=== PATIENT | female | born 1955 | race Caucasian/White ===

== ENCOUNTER 2024-01-25 12:03 | Inpatient (IN) | payer MEDICARE, BC, SELFPAY ==
[2024-01-24 07:42] VITALS: BP 122/104
--- NOTE | 2024-01-24 07:56 | ED.GENMED ---
History of Present Illness
General
Chief Complaint: Fall
Time Seen by Provider: 01/24/24 07:48
History of Present Illness
History of Present Illness:
68-year-old female with history of hypertension presents to the emergency department for evaluation of left shoulder pain and general weakness after a fall last night. She admits to slipping and falling last night around midnight, landing on her
left side. She was unable to get herself up and opted to stay on the floor. Her family did send out a welfare check in the early hours of the morning however the patient refused to be helped to her feet. Patient called EMS this morning given that
she had severe pain in the shoulder. She does report drinking nearly a full bottle of vodka last night due to family stress. She denies drinking on a daily basis. Denies SI or HI. No back pain, hip pain, or pelvic pain. Denies any headaches or
vision changes. Does not take blood thinners
Past History
Past History
ED Past Medical History: HTN and Psychiatric (Anxiety/depression )
ED Past Surgical History: Other (Gastric bypass. Hernia surgery)
Social History
Tobacco: Smoker (quit 02/2011 is on Chantix, patient is smoking several cigarettes per day at this time.)
Alcohol: Occasional
Drug: None
Personal: Single
Living: alone
Employment: Employed
Family History
Family History: CAD (Older age)
Review of Systems
Review of Systems
Allergies reviewed?: Yes
All Other Systems: ROS reviewed and negative except as documented in HPI and ROS
Phy Exam
Physical Exam
Physical Exam:
GEN: Well appearing, NAD, WDWN
Eyes: PERRLA, EOMs intact, no scleral icterus
HENT: NCAT, oral mucosa moist
Lungs: CTAB, no wheezes, rales, rhonchi, normal chest wall excursion
Cardiac: RRR, no M/R/G, no peripheral edema. Radial pulses 2+ bilat
Abdomen: S, NT, ND, NABS, no masses or hepatosplenomegaly
Neuro: AO x 3
MSK: Marked swelling to left shoulder with limited range of motion, neurovascularly intact distal to the injury. No pelvic tenderness or pressure injuries, normal hip range of motion bilaterally
Skin: No rashes, petechiae. Normal color, no pallor or jaundice.
Psych: Calm, cooperative, proper hygiene
Course
Orders/Labs/Results
Orders:
Orders
01/24/24 07:56
Morphine Sulfate 4 mg IV NOW STA
CR Shoulder - Left Min 2 View* Urgent
Comment:
Reason For Exam: fall, L shoulder pain
01/24/24 08:20
Alcohol Urgent
CPK [Creatine Phosphokinase] Urgent
Complete Blood Count/No Diff Urgent
Comprehensive Metabolic Panel Urgent
Serum Osmolality Urgent
Comment: ADD ON
01/24/24 10:32
Add On- LAB Urgent
Tests Added?: serum osmolality, ETOH
Urinalysis Reflex To Culture Urgent
Urine Sodium Urgent
01/24/24 11:50
Code Status As Directed
Resuscitation Status: Full Code
ORTHOPEDIC CONSULT Urgent
Consulting Provider: Dann Daniels
Was physician already notified: Yes
Bisacodyl [Dulcolax] 10 mg RECTAL [id number] PRN
Docusate W/Senna [Senokot-S] 1 tablet PO BIDPRN PRN
Polyethylene Glycol Powder [Miralax] 17 grams PO DAILYPRN PRN
Activity As Directed
Activity Level: As Tolerated
Neurological Checks As Directed
Frequency: Per unit guidelines
Vital Signs As Directed
Frequency: Per unit guidelines
Smoking Cessation Counseling [RESP] Routine
01/24/24 11:51
DX Deep Vein Thrombosis Video Routine
01/24/24 11:56
Morphine Sulfate 2 mg IV Q4HPRN PRN
Ondansetron Injectable [Zofran] 4 mg IV Q6HPRN PRN
01/24/24 12:00
0.9% Sodium Chloride 1000 ml [Nss] 1,000 ml IV 100 mls/hr
Acetaminophen [Tylenol] 650 mg PO Q4HWA
Famotidine [Pepcid] 20 mg PO DAILY
01/24/24 12:09
Occupational Therapy Consult [Ot Eval And Treat] Routine
01/24/24 12:23
DIETARY CONSULT Routine
Reason for Consult: Nutrition support, possible refeeding guidelines
Urinalysis Routine
Urine Drug Abuse Screen Routine
0.9% Sodium Chloride [Nss (Preservative Free)] See Protocol IV PRN PRN
FOLic ACID [Folvite] 1 mg 0.9% Sodium Chloride 50 ml [Nss] 50 ml IV DAILYPRN
Lorazepam [Ativan] 1 mg IV Q1HPRN PRN
Lorazepam [Ativan] 1 mg PO Q2HPRN PRN
Lorazepam [Ativan] 2 mg IV Q1HPRN PRN
MSAS SCORE As Directed
MSAS Score 0-4: Repeat MSAS every 2 hours until 0-4 for three consecutive assessments, then every 4 hours x 48
hours.
MSAS Score 5-7: For MILD withdrawl symptoms. Repeat MSAS and RASS every 2 hours
MSAS Score 8-11: For MODERATE withdrawal symptoms. Repeat MSAS and RASS every 1 hour. Consider ICU or IMU
level of care.
MSAS Score > 11: For SEVERE withdrawal symptoms. Repeat MSAS and RASS every 1 hour. Notify provider, consider
ICU level of care.
MSAS Additional Instructions: If no improvement or no decrease in score from severe to moderate within 12
hours, consult psychiatry
MSAS Notify Provider: Notify provider if patient requires more than 10 mg of Lorazepam in eight hour period.
01/24/24 12:28
Admit/Transfer Patient As Directed
Co-Sign Provider:
Level of Care: Observation services
Assign to:: Medical/Surgical
Physician / Group: Dr. Yoav Mena
Diagnosis: Alcohol abuse disorder
Expected length of stay greater than two midnights?: Yes
ELOS- Estimated Length of Stay in days: 3
I certify the patient meets the requirements for IP care: Yes
01/24/24 12:30
PRN Pain Medication Management As Directed
May give lesser potent ordered pain med per pt: Yes
preference::
Protocol:: Medication orders for pain may be administered in a
manner that supports deferring to patient preference
when the pt is:
- Requesting an ordered lesser potent pain medication.
Least to most potent pain medications are defined
as: acetaminophen < NSAID < tramadol < opioids
(morphine, oxycodone, hydromorphone).
- Requesting a lesser dose of the same medication IF
ORDERED.
- Requesting a less intrusive route of administration
if both routes are prescribed by the provider (PO <
IV).
01/24/24 13:00
FOLic ACID [Folvite] 1 mg PO DAILY
Thiamine HCl [Vitamin B1] 100 mg PO DAILY
01/24/24 13:15
PTT Urgent
Prothrombin Time Urgent
01/24/24 13:49
Amlodipine [Norvasc] 10 mg PO DAILY
Carvedilol [Coreg] 25 mg PO BID
Losartan [Cozaar] 100 mg PO DAILY
01/24/24 Dinner
Regular
At Your Request: Full Participation
Does patient need a safe tray?: No
01/24/24 18:00
Enoxaparin Sodium [Lovenox] 40 mg SC QPM
01/25/24 06:00
Complete Blood Count/With Diff IN AM
Comprehensive Metabolic Panel IN AM
Magnesium IN AM
PTT IN AM
Prothrombin Time IN AM
TSH IN AM
Vitamin B12 IN AM
Physical Therapy Consult [Pt Eval And Treat] IN AM
Activity Level: As Tolerated
Abnormal Lab Results
01/24/24
08:20
RBC 3.60 L 10^6/uL
(4.20-5.40)
Hgb 11.4 L g/dL
(12.0-16.0)
Hct 33.8 L %
(37.0-47.0)
MCH 31.7 H pg
(27.0-31.0)
Sodium 126 L mmol/L
(135-145)
Chloride 94 L mmol/L
(98-107)
Glucose 111 H mg/dl
(70-99)
01/24/24 08:20
01/24/24 08:20
Vital Signs
Initial and Last Documented VS:
Initial Vital Signs
Temp Pulse Resp BP Pulse Ox
97.6 F 71 20 122/104 97
01/24/24 07:42 01/24/24 07:42 01/24/24 07:42 01/24/24 07:42 01/24/24 07:42
Last Documented Vital Signs
Temp Pulse Resp BP Pulse Ox
98.8 F 94 18 162/82 90
01/24/24 14:30 01/24/24 14:30 01/24/24 14:30 01/24/24 14:30 01/24/24 14:30
MDM/Problems Addressed
MDM/Problems Addressed:
60-year-old female presents after a fall likely due to alcohol intoxication. She is found to have a left proximal humerus fracture and placed in a sling for this. She is also noted to be moderately hyponatremic which is likely due to alcohol
overuse. Ultimately she was quite unstable with ambulation unable to care for herself adequately, given lack of social support at home will admit for further management
*Critical Care Note
Total Time (30-74mins, 75-104mins- exclusive of procedures): Not Applicable
Update Note
Update Note:
1027: Pt reassessed, unable to ambulate steadily. Defecated on herself unknowingly. Will admit due to weakness/hyponatremia
ED Attending Note
-
Portions of this chart may have been created with voice recognition software.� Occasional wrong word or��sound alike� substitutions may have occurred due to the inherent limitations of voice recognition software.
Discharge Plan
Departure
Patient Disposition: Admit
Date of Disposition: 01/24/24
Time of Disposition: 11:04
Admit to: Med/Surg
Presentation/result/management discussed w/ accepting MD/DO: Hospitalist
Discharge Problem:
Acute hyponatremia, Alcohol intoxication, Closed fracture of left proximal humerus
Interventions
Interventions:
*Risk Screen - Suicide Last Done: 01/24/24 14:09
*General Assessment Last Done: 01/24/24 07:42
*Neglect/Abuse Screening Last Done: 01/24/24 07:42
*ED COVID-19 Vaccine History Last Done: 01/24/24 14:09
*Nursing Disposition Last Done: 01/24/24 14:03
ED-Musculoskeletal Assessment Last Done: 01/24/24 09:00
ED- Neurological Assessment Last Done: 01/24/24 09:00
ED-Skin Assessment Last Done: 01/24/24 09:00
Discharge Date and Time
Discharge Date/Time: 01/24/24 14:04
[2024-01-24 08:00] VITALS: BP 121/76
[2024-01-24 08:25] LABS: Hematocrit 33.8 % (37.0-47.0); Hemoglobin 11.4 g/dL (12.0-16.0); Mean Corp Hgb Conc. 33.7 g/dL (33.0-37.0); Mean Corpuscular Hgb 31.7 pg (27.0-31.0); Mean Corpuscular Volume 93.9 fL (81.0-99.0); Mean Platelet Volume 8.7 fL (7.4-10.4); Platelet Count 219 10^3/uL (130-400); Red Cell Dist. Width 12.7 % (11.5-14.5); White Blood Cell Count 7.7 10^3/uL (4.8-10.8)
[2024-01-24] MEDS: MORPHINE SULFATE 4 MG IV (08:37)
[2024-01-24 08:51] LABS: ALT (SGPT) 19 U/L (0-35); AST (SGOT) 31 U/L (14-36); Albumin 4.1 g/dl (3.5-5.0); Alkaline Phosphatase 115 U/L (38-126); Blood Urea Nitrogen 9 mg/dl (7-17); Calcium 8.8 mg/dl (8.4-10.2); Carbon Dioxide 22 mmol/L (22-30); Chloride 94 mmol/L (98-107); Creatine Phosphokinase 106 U/L (30-135); Estimated Creatinine Clearance 57 ml/min; Glucose 111 mg/dl (70-99); Potassium 5.1 mmol/L (3.5-5.1); Sodium 126 mmol/L (135-145); Total Bilirubin 0.5 mg/dl (0.2-1.3); Total Protein 6.7 g/dl (6.3-8.2); eGFR > 60.00
[2024-01-24 11:01] LABS: Osmolality Serum 281 mOsm/kg (275-300)
[2024-01-24 11:02] LABS: Alcohol 68 mg/dl
--- NOTE | 2024-01-24 11:19 | HPS.HSE ---
Addendum entered and electronically signed by Yoav Mena MD 01/24/24 13:35:
I personally performed a history and physical exam of the patient and discussed management with the resident. I reviewed the resident's note and agree with the documented findings and plan of care HPI/CC.
Original Note:
Family Physician
-
Family Physician: Lei Cook MD
Chief Complaint
-
shoulder pain
History of Present Illness
Patient was drinking 3/4 of a bottle of wine the day before yesterday and slipped on her left side, landing on her shoulder. Her family sent a welfare check on her early in the morning yesterday but she felt that she was fine so refused to be helped
onto her feet. So patient proceeded to spend the whole day in that position, and then called EMS today morning stating severe pain in the shoulder. She denies drinking every single day.
Medical History
Past Medical History
Past Medical History: Reports GERD, HTN and Other (Depression, Anxiety)
Past Surgical History: Reports Other (Gastric bypass, hernia surgery)
Social History
Tobacco: Smoker (a pack a day)
Alcohol: Occasional (2 glasses twice a week)
Drug: None
Personal: Single
Living: Alone
Employment: Employed
Family History
Family History: Not pertinent
Allergies / Home Medications
Allergies reflects when Allergies were last updated in [employer].
Home Medications with original date entered in [facility]
Allergy/Medication List:
Allergies
Allergy/AdvReac Type Severity Reaction Status Date / Time
enalaprilat [From Vasotec] Allergy Unknown Verified 01/24/24 07:48
olmesartan Allergy Hives Verified 01/24/24 07:48
Home Medications
carvedilol 6.25 mg tablet (Coreg) 25 mg PO BID Heart Failure 11/12/21
citalopram 10 mg tablet (Celexa) 10 mg PO DAILY Depression 11/12/21
cyanocobalamin (vitamin B-12) 500 mcg tablet (Vitamin B-12) 500 mcg PO DAILY Supplement 11/12/21
famotidine 20 mg tablet (Pepcid) 20 mg PO HSPRN PRN GERD 11/12/21
ferrous sulfate 325 mg (65 mg iron) tablet (iron) 325 mg PO DAILY Supplement 11/12/21
losartan 100 mg tablet 100 mg PO DAILY Heart Failure 11/12/21
ondansetron HCl 4 mg tablet 4 mg PO Q8H PRN nausea 06/11/22
Review of Systems
-
Constitutional: Denies Fever or Chills
Respiratory: Denies Cough or Trouble Breathing
Cardiac: Denies Chest Pain, Diaphoresis, Palpitations or Syncope
Abdomen/GI: Denies Abdominal Pain, Nausea, Vomiting, Diarrhea or Constipated
: Denies Dysuria
Musculoskeletal: Reports Joint Pain (left shoulder )
Neurological: Reports Weakness (bilateral lower extremities ); Denies Dizzy or Numbness
Physical Exam
Vital Signs
Vital Signs
Temp Pulse Resp BP Pulse Ox
97.6 F 71 20 122/104 97
01/24/24 07:42 01/24/24 07:42 01/24/24 07:42 01/24/24 07:42 01/24/24 07:42
Physical Exam
General: Obese
Respiratory: Wheezes (bilateral lower lobe of lungs)
Cardiac: S1/S2 and Regular Rhythm
GI: Soft, Non Tender, Non Distended and Normal Bowel Sounds
Musculoskeletal: No Clubbing, No Edema and Other (upper left shoulder immobilized in sling)
Skin: Warm and Dry
Neuro: Awake, Alert, Oriented and AO x 3
Laboratory Results
-
01/24/24 08:20
01/24/24 08:20
Laboratory Results
Total Bilirubin 0.5 mg/dl (0.2-1.3) 01/24/24 08:20
AST 31 U/L (14-36) 01/24/24 08:20
ALT 19 U/L (0-35) 01/24/24 08:20
Alkaline Phosphatase 115 U/L (38-126) 01/24/24 08:20
Data Reviewed
-
Medical Tests (Nuc Med, Echo, EKG etc): Image Personally Visualized and interpreted and Discussed with Physician
Lab Data: Labs Reviewed by me and Discussed with Physician
Impression/Plan
-
Alcohol abuse disorder:
- Thiamine, folic acid, and lorazepam as needed
- Daily MSAS check
- Today score is less than 2
- Check labs
- likely cause of patients hyponatremia
Moderate hyponatremia:
- Ordered serum osm, urine osm, and urine sodium
- Creatinine normal
- started on normal saline
- sodium is 126
Ambulatory dysfunction/ weakness of lower extremities:
-PT/OT
-patient states that she has paraesthesias of lower extremities
-Most likely due to long standing alcohol use
L proximal right humerus fracture:
-Currently immobilized
-Pain control with morphine as needed
-Orthopedics consulted
Essential HTN:
-pt confirms that she takes Norvasc/Coreg/losartan as listed on the medication reconciliation,
-Continue all current medications
Obesity due to excess calories
DVT ppx: Lovenox
--- NOTE | 2024-01-24 12:15 | W.PN.UPDATE ---
Update Note
Progress Note Update
I personally performed a history and physical exam of the patient and discussed management with the resident. I reviewed the resident's note and agree with the documented findings and plan of care HPI/CC.
Gen: NAD, AAOx3.
Eyes: EOMI, PERRLA, no scleral icterus.
Neck: supple.
CV: RRR, +S1/S2, no m/r/g.
Resp: B/L wheezing
Abd: +BS, soft, NT, ND
Skin: No rashes.
Neuro: CN 2-12 intact, non-focal.
Psych: Normal mood and affect.
Lab Results
01/24/24
08:20
WBC 7.7
RBC 3.60 L
Hgb 11.4 L
Hct 33.8 L
MCV 93.9
MCH 31.7 H
MCHC 33.7
RDW 12.7
Plt Count 219
MPV 8.7
Sodium 126 L
Potassium 5.1
Chloride 94 L
Carbon Dioxide 22
BUN 9
Creatinine 0.9
Estimated Creat Clear 57
eGFR > 60.00
Glucose 111 H
Serum Osmolality 281
Calcium 8.8
Total Bilirubin 0.5
AST 31
ALT 19
Alkaline Phosphatase 115
Creatine Kinase 106
Total Protein 6.7
Albumin 4.1
Alcohol, Quantitative 68
L shoulder Xray: There is a comminuted, mildly displaced fracture of the proximal right humerus extending into the greater tuberosity. There is a ossific fragment adjacent to the distal clavicle which appears chronic.
Alcohol abuse disorder:
-MSAS protocol (thiamine/folate/PRN ativan), monitor for withdrawal
-likely hyponatremia is related to alcohol abuse. NS @ 100cc/hr, trend Na. Check UOsm, Baldo. Serum Osm normal.
Ambulatory dysfunction:
-PT/OT
-exacerbated by alcohol abuse disorder and hyponatremia
L proximal right humerus fracture:
-Currently immobilized
-Pain control
-Orthopedics consult
Essential HTN:
-pt confirms that she takes Norvasc/Coreg/losartan as listed on the medication reconciliation, will continue
Obesity due to excess calories
OSB/MS/Lovenox
[2024-01-24 13:00] VITALS: BP 165/87
[2024-01-24] MEDS: VITAMIN B1 100 MG PO (13:02)
[2024-01-24] MEDS: FOLVITE 1 MG PO (13:03)
[2024-01-24] MEDS: TYLENOL 650 MG PO ×4 (13:03→23:35)
[2024-01-24] MEDS: MORPHINE SULFATE 2 MG IV ×2 (13:04→17:32)
[2024-01-24] MEDS: PEPCID 20 MG PO (13:04)
[2024-01-24] MEDS: NSS 1000 IV ×2 (13:08→22:33)
[2024-01-24 13:36] LABS: APTT 27.7 Sec (23.4-35.0); INR 0.98; PT 13.3 Sec (11.4-14.6)
[2024-01-24 14:30] VITALS: BP 162/82
[2024-01-24] MEDS: COREG 25 MG PO ×2 (14:37→20:20)
[2024-01-24] MEDS: NORVASC 10 MG PO (14:38)
[2024-01-24] MEDS: COZAAR 100 MG PO (14:38)
[2024-01-24 14:41] VITALS: BMI 29.7
[2024-01-24 15:05] LABS: Magnesium 1.9 mg/dl (1.6-2.3); Phosphorus 4.9 mg/dl (2.5-4.5)
[2024-01-24 15:24] LABS: GGTP 39 U/L (12-43)
[2024-01-24 15:25] LABS: Alcohol None Detected
[2024-01-24 15:30] LABS: B-Hydroxybutyrate 1.74 mmol/L (0.02-0.27)
[2024-01-24 15:37] LABS: Osmolality Serum 261 mOsm/kg (275-300)
[2024-01-24] MEDS: LOVENOX 40 MG SC (17:19)
[2024-01-24 18:03] LABS: Osmolality Urine 287 mOsm/kg (300-900)
[2024-01-24 18:04] LABS: Urine Albumin Negative (Neg - Trace); Urine Bilirubin Negative (Negative); Urine Character Clear (Clear); Urine Color Yellow; Urine Glucose Negative (Negative); Urine Ketone 1+ (Negative); Urine Leukocyte 1+ (Negative); Urine Nitrite Positive (Negative); Urine Occult Blood Negative (Negative); Urine Urobilinogen Negative (Neg - 1+)
[2024-01-24 18:17] LABS: Amphetamines Negative (Negative); Barbiturates Negative (Negative); Benzodiazepines Negative (Negative); Buprenorphine Negative (Negative); Cocaine Negative (Negative); Marijuana Negative (Negative); Methadone Negative (Negative); Methamphetamines Negative (Negative); Opiates Positive (Negative); Phencyclidine Negative (Negative); Tricyclic Antidepressants Negative (Negative)
[2024-01-24 18:23] LABS: Urine Sodium 12 mmol/L (30-90)
[2024-01-24 18:38] LABS: Fentanyl, Urine Negative (Negative)
[2024-01-24 19:35] LABS: Urine Bacteria Many (Negative)
--- NOTE | 2024-01-24 22:23 | CON.ORTHO ---
Consultation
-
Date/Time Consultation Requested: [id number] 11:59
Date/Time Consultation Performed: [id number] 14:50
Requesting Provider: Mateo Marcelo
Performing Provider: Dann Daniels MD
Reason for Consultation: left proximal humerus fracture
Consultation - Orthopedics
History
Ms Rowan is a right handed 68F with past medical history alcohol abuse disorder, peripheral neuropathy, HTN, depression, anxiety, who presents with two days of left shoulder pain. She sustained a mechanical fall at home and landed on her left
shoulder. Her family requested a wellness check, and she was found at her home. She states she was comfortable and declined emergency services. She went to sleep and called EMS this morning due to continued pain. In the emergency department it was
determined she sustained a left proximal humerus fracture, as well as a chronic distal clavicle non-union. She denies prior injury to the shoulder and states she had no pain or disability before the fall. She was admitted for hyponatremia an remains
in the hospital.
Physical exam:
Mild deformity of distal clavicle, no ecchymosis or open wounds
TTP lateral humerus, no tenderness over distal clavicle
Shoulder, elbow ROM deferred
N0 pain with pronosupination, wrist ROM
5/5 hand, wrist ROM
Sensation intact in all dermatomes
Brisk capillary refill, palpable radial pulse
XR: displaced fractures of the surgical neck with 4mm displacement, and displacement of the greater tuberosity with approximately 14 degrees of angulation and 4mm displacement
Allergies / Home Medications
Allergy/AdvReac Type Severity Reaction Status Date / Time
enalaprilat [From Vasotec] Allergy Unknown Verified 01/24/24 07:48
olmesartan Allergy Hives Verified 01/24/24 07:48
�Medication �Instructions �Recorded
losartan 100 mg tablet 100 mg PO DAILY Heart Failure 11/12/21
amlodipine 10 mg tablet 10 mg PO DAILY 01/24/24
carvedilol 25 mg tablet (Coreg) 25 mg PO BID 01/24/24
loperamide 2 mg tablet 2 mg PO QIDPRN PRN diarrhea 01/24/24
Vital Signs / Lab Results
Temp Pulse Resp BP Pulse Ox
98.8 F 94 18 162/82 90
01/24/24 14:30 01/24/24 14:30 01/24/24 14:30 01/24/24 14:30 01/24/24 14:30
01/24/24 08:20
01/24/24 08:20
Assessment / Plan
Ms Rowan is a right handed 68F with a left proximal humerus fracture and left distal clavicle chronic non-union
-Given the patient's activity level and mild displacement of her fracture, it is reasonable to pursue non-operative treatment of this injury. Patient is to remain non-weight bearing in her sling and follow up with me as an outpatient when discharged
from the hospital. She should wear the sling for 2-3 weeks until her pain subsides, then we will start physical therapy to help restore function of the shoulder. Orthopaedics will sign off at this time, reconsult as necessary.
[2024-01-24] MEDS: ROBITUSSIN 200 MG PO (22:43)
[2024-01-24 23:08] VITALS: BP 148/82
[2024-01-24] MEDS: ULTRAM 25 MG PO (23:36)
[2024-01-25] MEDS: TYLENOL PO (04:53)
[2024-01-25 07:29] VITALS: BP 153/87
[2024-01-25 07:39] LABS: % Basophils 0.3 % (0-2); % Eosinophils 0.5 % (0-6); % Immature Granulocytes 0.5 % (0-0.5); % Lymphocytes 13.9 % (20.5-51.1); % Monocytes 10.9 % (1.7-9.3); % Neutrophils 73.9 % (42.2-75.2); Absolute Lymphocytes 0.8 10^3/uL (1.2-3.4); Absolute Monocytes 0.6 10^3/uL (0.1-0.6); Absolute Neutrophils 4.3 10^3/uL (1.4-6.5); Hematocrit 29.8 % (37.0-47.0); Hemoglobin 10.1 g/dL (12.0-16.0); Mean Corp Hgb Conc. 33.9 g/dL (33.0-37.0); Mean Corpuscular Hgb 32.8 pg (27.0-31.0); Mean Corpuscular Volume 96.8 fL (81.0-99.0); Nucleated Red Blood Cells % 0 %; Platelet Count 198 10^3/uL (130-400); Red Blood Cell Count 3.08 10^6/uL (4.20-5.40); Red Cell Dist. Width 13.2 % (11.5-14.5); White Blood Cell Count 5.8 10^3/uL (4.8-10.8)
[2024-01-25 07:49] LABS: INR 0.97; PT 13.2 Sec (11.4-14.6)
[2024-01-25 07:50] LABS: APTT 33.1 Sec (23.4-35.0)
--- NOTE | 2024-01-25 08:02 | W.PN.HOSP.TC ---
Addendum entered and electronically signed by Christos Escalona MD 01/25/24 23:24:
Attending Addendum-
I saw and evaluated the patient. I reviewed the resident�s note and agree with findings and plan as documented in the resident�s note. Sub: complains of pain on movement of LUE. Full 12 point ROS reviewed and negative except as documented Exam:
Vitals reviewed in chart GEN-NAD heart RRR Lungs Lcear abd soft LE no edeam LUE in sling pulses intact
# ALICE/Alcohol dependence:
-MSAS protocol (thiamine/folate/PRN ativan), monitor for withdrawal now 0
-offered BCAREs
- SW on board
# Peripheral Neuropathy
- start Neurontin
- from ETOH abuse
# Hyponatremia
- euvolemic
- DC IVF
- fluid restrict to 1800mls
- Check UOsm, Baldo. Serum Osm normal.
# Ambulatory dysfunction:
-PT/OT
-exacerbated by alcohol abuse disorder and hyponatremia
# Comminuted, mildly displaced fracture of the proximal LEFT humerus extending into the greater tuberosity
- Currently immobilized
- NWB x 2-3 weeks until f/u
- Pain control
- non surg
- Orthopedics f/u as OP 2-3 wks
# Essential HTN:
-pt confirms that she takes Norvasc/Coreg/losartan as listed on the medication reconciliation, will continue
# Depression cont celexa
DVTp-Lovenox
Dispo likely DC to SNF when able in am
Time spent coordinating care, review of plan of care with resident, personally reviewed records in EMR, med rec, consults, notes, labs, radiology, d/w nursing � 56 mins
Original Note:
Today's Communication/Plan
-
.
Assessment / Plan
Assessment / Plan
Ms. Malena Rowan is a 69yo F pmh HTN and alcohol use disorder admitted for hyponatremia s/p mechanical fall.
Hypotonic Hyponatremia
- Serum Osm, urine Osm, Urine Na
- Cr, BUN wnl
- Na 126 on admission
- ensure adequate Na intake >150mEq, then recheck urine Osm and urine Na
Asymptomatic Bacturia
- repeat U/a
Opiate use
- positive in urine
- could be due to loperamide
- COWS
Alcohol use disorder
- thiamine, folic acid, lorazepam
- daily MSAS check
Ambulatory dysfunction
Weakness b/l LE
- PT/OT
- paresthesias
- likely secondary to chronic alcohol use
L proximal R humerus fx
- immobilized
- pain control
- ortho consulted - pursue non-operative treatment
HTN
- cont home amlodipine, carvedilol, losartan
Overweight due to excess calories
- likely affected by alcohol use disorder
Diet: regular
DVT prophylaxis: lovenox
Code status: FULL CODE
Anticipated Discharge: > 48 hours
Subjective/Interval History
-
Date of Service: January 25, 2024
Ms. Malena Rowan is a 69yo F h HTN and alcohol use disorder admitted for hyponatremia s/p mechanical fall. Pt tripped on sneaker that came off and landed on L shoulder. Hx R shoulder fx. Pt is unable to move arm without pain.
Objective Data
-
Labs:
Laboratory Results
01/25/24
07:07
WBC 5.8
Hgb 10.1 L
Hct 29.8 L
Plt Count 198
PT 13.2
INR 0.97
APTT 33.1
Sodium Pending
Potassium Pending
Chloride Pending
Carbon Dioxide Pending
BUN Pending
Creatinine Pending
Glucose Pending
Calcium Pending
Total Bilirubin Pending
AST Pending
ALT Pending
Alkaline Phosphatase Pending
Vital Signs:
Vital Signs
Temp Pulse Resp BP Pulse Ox
98.1 F 71 20 153/87 93
01/25/24 07:29 01/25/24 07:29 01/25/24 07:29 01/25/24 07:29 01/25/24 07:29
I&O
01/24/24 01/25/24 01/26/24
06:59 06:59 06:59
Intake Total 1150 / 1150
Output Total 150 / 150
Balance 1000 / 1000
Review of Systems
-
History Source: Patient
Constitutional: Reports No Symptoms
EENT: Reports No Symptoms Reported
Respiratory: Reports No Symptoms
Cardiac: Reports No Symptoms
Abdomen/GI: Reports No Symptoms
Neuro: Reports No Symptoms
Physical Exam
-
General: Well Developed, Well Nourished and Pain
HEENT: Normocephalic, Atraumatic and Moist Mucous Membranes
Respiratory: Clear to Auscultation and Non Labored Respirations
Cardiac: Regular Rhythm and S1/S2
GI: Soft, Nontender, Nondistended and Normal Bowel Sounds
Musculoskeletal: Edema, Left Upper Extrem and Other (L arm in sling)
Neuro: AO x 3 and Other (slurred speech)
[2024-01-25 08:16] LABS: ALT (SGPT) 17 U/L (0-35); AST (SGOT) 28 U/L (14-36); Albumin 3.5 g/dl (3.5-5.0); Alkaline Phosphatase 98 U/L (38-126); Blood Urea Nitrogen 10 mg/dl (7-17); Calcium 8.1 mg/dl (8.4-10.2); Carbon Dioxide 23 mmol/L (22-30); Chloride 98 mmol/L (98-107); Estimated Creatinine Clearance 86 ml/min; Glucose 89 mg/dl (70-99); Potassium 4.5 mmol/L (3.5-5.1); Sodium 126 mmol/L (135-145); Total Protein 6.2 g/dl (6.3-8.2); eGFR > 60.00
[2024-01-25] MEDS: FOLVITE 1 MG PO (08:33)
[2024-01-25] MEDS: TYLENOL 650 MG PO ×5 (08:33→23:30)
[2024-01-25] MEDS: COREG 25 MG PO ×2 (08:33→19:23)
[2024-01-25] MEDS: COZAAR 100 MG PO (08:34)
[2024-01-25] MEDS: NSS 1000 IV ×2 (08:34→18:02)
[2024-01-25] MEDS: PEPCID 20 MG PO (08:34)
[2024-01-25] MEDS: NORVASC 10 MG PO (08:34)
[2024-01-25] MEDS: VITAMIN B1 100 MG PO (08:34)
[2024-01-25 08:41] LABS: TSH 1.43 uIU/ml (0.47-4.68)
[2024-01-25 09:00] LABS: Vitamin B12 900 pg/ml (239-931)
[2024-01-25 11:28] VITALS: BP 114/79; O2SAT 93
[2024-01-25 11:38] VITALS: BP 114/79; O2SAT 93
[2024-01-25] MEDS: ULTRAM 25 MG PO ×3 (12:36→23:30)
[2024-01-25 15:17] VITALS: BP 148/77
--- NOTE | 2024-01-25 15:30 | CM ---
CM met with pt and her two friends/Cathie Mckay and Tammy
Pt resides alone in a 2SH with 1STE, full flight to 2nd floor
Has been staying on first floor
Pt is independent with her ADLs- denies ADs at home
Denies financial insecurities
PCP- Lei Cook
Rx0- [facility] [address]
Pt with L shoulder fx
NWB in sling per ortho until outpt follow up
SNF recs by therapy
Pt tearful but in agreement with referrals
PASRR completed and referrals sent via [facility] to [facility], [facility], and [facility]
Pt's dtr listed as a contact/Alondra Rowan [phone], she is her primary POA
Noted her cannot be contacted- dtr to be removed from contacts
Noted dtr can only be contacted in the event of her
Pt's friend Tammy is a secondary POA on her paperwork
Pt requested to add other friend/Cathie Mckay to her contacts
Advanced directive info provided to pt as pt wishes to change medical decision makers
She will complete and provide to nursing
Alcohol use discussed- pt declined resources
Discharge Disposition- SNF
--- NOTE | 2024-01-25 16:36 | CM ---
TC from [facility], they are unable to offer a bed at this time.
[2024-01-25] MEDS: LOVENOX 40 MG SC (17:29)
[2024-01-25 23:11] VITALS: BP 142/71
[2024-01-26 03:23] LABS: Urine Albumin Negative (Neg - Trace); Urine Bilirubin Negative (Negative); Urine Character Slightly Cloudy (Clear); Urine Color Straw; Urine Glucose Negative (Negative); Urine Ketone Negative (Negative); Urine Leukocyte 2+ (Negative); Urine Nitrite Positive (Negative); Urine Occult Blood Negative (Negative); Urine Urobilinogen Negative (Neg - 1+)
[2024-01-26 03:47] LABS: Urine Sodium 114 mmol/L (30-90)
[2024-01-26 04:02] LABS: Osmolality Urine 282 mOsm/kg (300-900)
[2024-01-26] MEDS: TYLENOL PO (04:04)
[2024-01-26] MEDS: ULTRAM 25 MG PO ×3 (05:55→20:59)
[2024-01-26 07:05] LABS: Urine Mucus Many; Urine Squamous Cell >30 /LPF (Few)
[2024-01-26 07:06] LABS: Urine Bacteria Many (Negative); Urine White Cell >100 /HPF (0-5)
[2024-01-26 07:32] VITALS: BP 139/83
[2024-01-26 08:06] LABS: Hematocrit 29.5 % (37.0-47.0); Hemoglobin 9.6 g/dL (12.0-16.0); Mean Corp Hgb Conc. 32.5 g/dL (33.0-37.0); Mean Corpuscular Hgb 31.5 pg (27.0-31.0); Mean Corpuscular Volume 96.7 fL (81.0-99.0); Platelet Count 187 10^3/uL (130-400); Red Blood Cell Count 3.05 10^6/uL (4.20-5.40); White Blood Cell Count 6.4 10^3/uL (4.8-10.8)
--- NOTE | 2024-01-26 08:36 | W.PN.HOSP.TC ---
Addendum entered and electronically signed by Christos Escalona MD 01/26/24 23:16:
Attending Addendum-
I saw and evaluated the patient. I reviewed the resident�s note and agree with findings and plan as documented in the resident�s note. Sub: 'i want to stay here. im not ready to be kicked out' pain controlled. now incontinent, ambulating on own
without assistance. Full 12 point ROS reviewed and negative except as documented Exam: Vitals reviewed in chart GEN-NAD heart RRR Lungs clear abd soft LE no edema LUE in sling pulses intact
# ALICE/Alcohol dependence:
-MSAS protocol (thiamine/folate/PRN ativan), monitor for withdrawal
-offered BCAREs
-SW on board
# Peripheral Neuropathy
- cont Neurontin
- from ETOH abuse
# UTI
- has sxs
- start abx
- await c and s
# Hyponatremia
- euvolemic
- DC'd IVF
- fluid restrict to 1500mls
- repeat in am
# Ambulatory dysfunction:
-PT/OT
- SNF rec
# Comminuted, mildly displaced fracture of the proximal LEFT humerus extending into the greater tuberosity
- Currently immobilized an in sling
- NWB x 2-3 weeks until f/u
- Pain control
- non surg
- Orthopedics f/u as OP 2-3 wks
# Essential HTN:
-cont Norvasc/Coreg/losartan
# Depression cont celexa
DVTp-Lovenox
Dispo likely DC to [facility] on 01/27 medically stable for DC awaiting placement
Time spent coordinating care, review of plan of care with resident, personally reviewed records in EMR, med rec, consults, notes, labs, radiology, d/w nursing,SW � 53 mins
Original Note:
Today's Communication/Plan
-
.
Assessment / Plan
Assessment / Plan
Ms. Malena Cantiello is a 69yo F pmh HTN and alcohol use disorder admitted for hyponatremia s/p mechanical fall.
Hypotonic Hyponatremia
- Serum Osm, urine Osm, Urine Na
- Cr, BUN wnl
- Na 126 on admission
- TSH wnl
- 1500ml PO intake fluid restriction
UTI
- urine cx: gram negative bacilli
- start bactrim 100mg daily x5d
Opiate use
- positive in urine
- could be due to loperamide
- COWS
Alcohol use disorder
- thiamine, folic acid, lorazepam
- daily MSAS check
Ambulatory dysfunction
Weakness b/l LE
- PT/OT
- paresthesias
- likely secondary to chronic alcohol use
L proximal R humerus fx
- immobilized
- pain control
- ortho consulted - pursue non-operative treatment
- plan to dc to [facility] on
HTN
- cont home amlodipine, carvedilol, losartan
Overweight due to excess calories
- likely affected by alcohol use disorder
Diet: regular
DVT prophylaxis: lovenox
Code status: FULL CODE
Anticipated Discharge: 24 - 48 hours
Subjective/Interval History
-
Date of Service: January 26, 2024
Ms. Malena Rowan is a 69yo F pmh HTN and alcohol use disorder admitted for hyponatremia s/p mechanical fall. Pt is feeling better today. She has increased urinary frequency. No dysuria, hematuria, increased urgency. Sometimes unable to tell when
she has to go. Pt believes she could have caught a UTI from when she had an accidental bowel movement in her pants a couple days prior. Pt is concerned about taking care of herself with one arm, dressing herself, driving, and grocery shopping.
Objective Data
-
Labs:
Laboratory Results
01/26/24
07:34
WBC 6.4
Hgb 9.6 L
Hct 29.5 L
Plt Count 187
Sodium Pending
Potassium Pending
Chloride Pending
Carbon Dioxide Pending
BUN Pending
Creatinine Pending
Glucose Pending
Calcium Pending
Total Bilirubin Pending
AST Pending
ALT Pending
Alkaline Phosphatase Pending
Vital Signs:
Vital Signs
Temp Pulse Resp BP Pulse Ox
98.4 F 80 18 139/83 96
01/26/24 07:32 01/26/24 07:32 01/26/24 07:32 01/26/24 07:32 01/26/24 07:32
I&O
01/25/24 01/26/24 01/27/24
06:59 06:59 06:59
Intake Total 1150 / 1150 2380 / 2380
Output Total 150 / 150
Balance 1000 / 1000 2380 / 2380
Review of Systems
-
History Source: Patient
Constitutional: Reports No Symptoms
EENT: Reports No Symptoms Reported
Respiratory: Reports No Symptoms
Cardiac: Reports No Symptoms
Abdomen/GI: Reports No Symptoms
Genitourinary: Reports Frequency and Incontinence; Denies Dysuria, Flank Pain, Urgency or Bleeding
Musculoskeletal: Reports Muscle Pain
Skin: Reports No Symptoms
Neuro: Reports No Symptoms
Physical Exam
-
General: Well Developed and Well Nourished
HEENT: Normocephalic, Atraumatic and Moist Mucous Membranes
Respiratory: Clear to Auscultation and Non Labored Respirations
Cardiac: Regular Rhythm and S1/S2; Negative Murmur, Rub or Gallop
GI: Soft, Nontender, Nondistended and Normal Bowel Sounds
Genito-urinary: No Costovertebral Tender
Musculoskeletal: No Cyanosis, Edema, Left Upper Extrem and Other (strength preserved in b/l UE)
Skin: Warm and Dry
Neuro: AO x 3
Psych: Calm
[2024-01-26 08:40] LABS: ALT (SGPT) 16 U/L (0-35); AST (SGOT) 24 U/L (14-36); Albumin 3.2 g/dl (3.5-5.0); Alkaline Phosphatase 99 U/L (38-126); Blood Urea Nitrogen 7 mg/dl (7-17); Calcium 8.2 mg/dl (8.4-10.2); Carbon Dioxide 23 mmol/L (22-30); Chloride 97 mmol/L (98-107); Estimated Creatinine Clearance 86 ml/min; Glucose 94 mg/dl (70-99); Potassium 4.1 mmol/L (3.5-5.1); Sodium 127 mmol/L (135-145); Total Bilirubin 0.7 mg/dl (0.2-1.3); Total Protein 5.8 g/dl (6.3-8.2); eGFR > 60.00
[2024-01-26] MEDS: PEPCID 20 MG PO (08:49)
[2024-01-26] MEDS: VITAMIN B1 100 MG PO (08:49)
[2024-01-26] MEDS: FOLVITE 1 MG PO (08:49)
[2024-01-26] MEDS: COREG 25 MG PO ×2 (08:49→19:19)
[2024-01-26] MEDS: TYLENOL 650 MG PO ×4 (08:49→19:18)
[2024-01-26] MEDS: COZAAR 100 MG PO (08:49)
[2024-01-26] MEDS: NORVASC 10 MG PO (08:49)
[2024-01-26 10:24] LABS: TSH Reflex To Free T4 1.23 uIU/ml (0.47-4.68)
--- NOTE | 2024-01-26 13:06 | CM ---
Chart reviewed and per admissions at [facility] they will have a bed for patient on 01/28/24, . Patient made aware.
Plan; Skilled placement as recommended by physical therapy.
[2024-01-26 15:11] VITALS: BP 144/87
[2024-01-26] MEDS: LOVENOX 40 MG SC (17:20)
[2024-01-26] MEDS: NEURONTIN 200 MG PO (20:59)
[2024-01-26 23:40] VITALS: BP 154/83
[2024-01-27] MEDS: TYLENOL PO ×2 (01:05→03:58)
[2024-01-27] MEDS: ROBITUSSIN 200 MG PO (04:16)
[2024-01-27] MEDS: TYLENOL 650 MG PO ×5 (04:16→20:37)
[2024-01-27 07:34] VITALS: BP 149/90
[2024-01-27 07:37] LABS: Hematocrit 30.2 % (37.0-47.0); Mean Corp Hgb Conc. 33.1 g/dL (33.0-37.0); Mean Corpuscular Hgb 31.5 pg (27.0-31.0); Mean Corpuscular Volume 95.3 fL (81.0-99.0); Mean Platelet Volume 8.9 fL (7.4-10.4); Platelet Count 217 10^3/uL (130-400); Red Blood Cell Count 3.17 10^6/uL (4.20-5.40); Red Cell Dist. Width 12.9 % (11.5-14.5); White Blood Cell Count 6.2 10^3/uL (4.8-10.8)
--- NOTE | 2024-01-27 08:08 | W.PN.HOSP.TC ---
Addendum entered and electronically signed by Christos Escalona MD 01/27/24 23:22:
Attending Addendum-
I saw and evaluated the patient. I reviewed the resident�s note and agree with findings and plan as documented in the resident�s note. Sub: pain controlled. less incontinent, ambulating on own without assistance. 'i need to go home before i go to
[facility]' Full 12 point ROS reviewed and negative except as documented Exam: Vitals reviewed in chart GEN-NAD heart RRR Lungs clear abd soft LE no edema LUE in sling pulses intact
# ALICE/Alcohol dependence:
-MSAS protocol (thiamine/folate/PRN ativan), monitor for withdrawal
-offered BCAREs
-SW on board
# Peripheral Neuropathy
- cont Neurontin
- from ETOH abuse
# UTI
- pansens e coli
- continue bactrim
# Chronic Hyponatremia
- likely from etoh abuse
- euvolemic
- DC'd IVF
- fluid restrict to 1500mls
- t/c adding na cl tabs
- repeat in am
# Ambulatory dysfunction:
-PT/OT
# Comminuted, mildly displaced fracture of the proximal LEFT humerus extending into the greater tuberosity
- Currently immobilized an in sling
- NWB x 2-3 weeks until f/u
- Pain control
- non surg
- Orthopedics f/u as OP 2-3 wks
# Essential HTN:
-cont Norvasc/Coreg/losartan
# Depression cont celexa
DVTp-Lovenox
Dispo-DC to [facility] on 01/27 medically stable for DC awaiting placement
Time spent coordinating care, review of plan of care with resident, personally reviewed records in EMR, med rec, consults, notes, labs, radiology, d/w nursing,SW � 52 mins
Original Note:
Today's Communication/Plan
-
.
Assessment / Plan
Assessment / Plan
Ms. Malena Rowan is a 69yo F pmh HTN and alcohol use disorder admitted for hyponatremia s/p mechanical fall.
Hypotonic Hyponatremia
- Cr, BUN wnl
- Na 126 on admission
- stable
- TSH wnl
- 1500ml PO intake fluid restriction
UTI
- urine cx: gram negative bacilli
- bactrim
Alcohol use disorder
- thiamine, folic acid, lorazepam
- daily MSAS check
Ambulatory dysfunction
Weakness b/l LE
- PT/OT
- paresthesias
- likely secondary to chronic alcohol use
L proximal humerus fx
- immobilized
- pain control
- ortho consulted - pursue non-operative treatment
- plan to dc to [facility] on
HTN
- cont home amlodipine, carvedilol, losartan
Overweight due to excess calories
- likely affected by alcohol use disorder
Diet: regular
DVT prophylaxis: lovenox
Code status: FULL CODE
Anticipated Discharge: Within 24 hours
Subjective/Interval History
-
Date of Service: January 27, 2024
Ms. Malena Rowan is a 69yo F pmh HTN and alcohol use disorder admitted for hyponatremia s/p mechanical fall. She is endorsing more pain in her L arm. She would like to discuss the possibility of surgery instead of conservative management.
Objective Data
-
Labs:
Laboratory Results
01/27/24
07:01
WBC 6.2
Hgb 10.0 L
Hct 30.2 L
Plt Count 217
Sodium Pending
Potassium Pending
Chloride Pending
Carbon Dioxide Pending
BUN Pending
Creatinine Pending
Glucose Pending
Calcium Pending
Total Bilirubin Pending
AST Pending
ALT Pending
Alkaline Phosphatase Pending
Vital Signs:
Vital Signs
Temp Pulse Resp BP Pulse Ox
97.5 F 97 18 149/90 96
01/27/24 07:34 01/27/24 07:34 01/27/24 07:34 01/27/24 07:34 01/27/24 07:34
I&O
01/26/24 01/27/24 01/28/24
06:59 06:59 06:59
Intake Total 2380 / 2380 2160 / 2160
Balance 2380 / 2380 2160 / 2160
Review of Systems
-
History Source: Patient
Constitutional: Reports No Symptoms
EENT: Reports No Symptoms Reported
Respiratory: Reports No Symptoms
Cardiac: Reports No Symptoms
Abdomen/GI: Reports No Symptoms
Musculoskeletal: Reports Joint Pain and Muscle Pain
Neuro: Reports No Symptoms
Physical Exam
-
General: Well Developed, Well Nourished and No Apparent Distress
HEENT: Normocephalic, Atraumatic and Moist Mucous Membranes
Respiratory: Clear to Auscultation and Non Labored Respirations
Cardiac: Regular Rhythm and S1/S2; Negative Murmur, Rub or Gallop
GI: Soft, Nontender, Nondistended and Normal Bowel Sounds
Musculoskeletal: Other (LUE strength preserved, b/l radial pulse +2)
[2024-01-27 08:11] LABS: ALT (SGPT) 16 U/L (0-35); AST (SGOT) 25 U/L (14-36); Albumin 3.5 g/dl (3.5-5.0); Alkaline Phosphatase 96 U/L (38-126); Blood Urea Nitrogen 7 mg/dl (7-17); Calcium 8.7 mg/dl (8.4-10.2); Carbon Dioxide 25 mmol/L (22-30); Chloride 96 mmol/L (98-107); Estimated Creatinine Clearance 86 ml/min; Glucose 83 mg/dl (70-99); Potassium 4.4 mmol/L (3.5-5.1); Sodium 127 mmol/L (135-145); Total Bilirubin 0.6 mg/dl (0.2-1.3); Total Protein 6.1 g/dl (6.3-8.2); eGFR > 60.00
[2024-01-27] MEDS: BACTRIM DS 800 MG/160 MG 1 TABLET PO ×2 (08:57→20:37)
[2024-01-27] MEDS: VITAMIN B1 100 MG PO (08:57)
[2024-01-27] MEDS: COREG 25 MG PO ×2 (08:57→20:37)
[2024-01-27] MEDS: COZAAR 100 MG PO (08:58)
[2024-01-27] MEDS: FOLVITE 1 MG PO (08:58)
[2024-01-27] MEDS: NORVASC 10 MG PO (08:58)
[2024-01-27] MEDS: PEPCID PO (08:59)
--- NOTE | 2024-01-27 14:04 | CM ---
Chart reviewed and plan is for possible skilled placement tomorrow at [facility], per patient her friend will be able to transport her to [facility] skilled.
Plan; Patient to transfer to [facility] tomorrow, friend to transport.
[email or web address]
Report [phone]
[2024-01-27 15:43] VITALS: BP 127/93
[2024-01-27] MEDS: ROBITUSSIN 100 MG PO ×2 (17:02→20:43)
[2024-01-27] MEDS: LOVENOX 40 MG SC (17:02)
[2024-01-27] MEDS: NEURONTIN 200 MG PO (20:37)
[2024-01-27] MEDS: ULTRAM 25 MG PO (20:41)
[2024-01-28] MEDS: TYLENOL PO (00:01)
[2024-01-28] MEDS: ULTRAM 25 MG PO (03:32)
[2024-01-28] MEDS: TYLENOL 650 MG PO ×3 (03:32→13:06)
[2024-01-28] MEDS: ROBITUSSIN 100 MG PO (06:12)
[2024-01-28 07:00] VITALS: BP 132/80
--- NOTE | 2024-01-28 07:36 | W.PN.HOSP.TC ---
Addendum entered and electronically signed by Christos Escalona MD 01/28/24 22:33:
Attending Addendum-
I saw and evaluated the patient. I reviewed the resident�s note and agree with findings and plan as documented in the resident�s note. Sub: pain controlled. not incontinent, ambulating on own without assistance. Full 12 point ROS reviewed and
negative except as documented Exam: Vitals reviewed in chart GEN-NAD heart RRR Lungs clear abd soft LE no edema LUE in sling pulses intact
# ALICE/Alcohol dependence:
-MSAS protocol (thiamine/folate/PRN ativan)
- no signs of WD
- counselled re continued abstinence
# Peripheral Neuropathy
- cont Neurontin
- from ETOH abuse
# UTI
- pansens e coli
- continue bactrim
# Chronic Hyponatremia
- improved
- likely from etoh abuse
- euvolemic
- DC'd IVF
- fluid restrict to 1500mls
- t/c adding na cl tabs
# Ambulatory dysfunction:
-PT/OT
# Comminuted, mildly displaced fracture of the proximal LEFT humerus extending into the greater tuberosity
- Currently immobilized an in sling
- NWB x 2-3 weeks until f/u
- Pain control
- non surg
- Orthopedics f/u as OP 2-3 wks
# Essential HTN:
-cont Norvasc/Coreg/losartan
# Depression cont celexa
DVTp-Lovenox
Dispo-DC to SNF [place]
Time spent coordinating care, DC planning, review of DC plan of care with resident, transition of care, review of records, med rec/scripts sent electronically, consults, notes, d/w consultants, nursing, family, and CM� 35 mins
Original Note:
Today's Communication/Plan
-
.
Assessment / Plan
Assessment / Plan
Ms. Malena Rowan is a 69yo F pmh HTN and alcohol use disorder admitted for hyponatremia s/p mechanical fall.
Hypotonic Hyponatremia
- Cr, BUN wnl
- Na 126 on admission
- stable
- TSH wnl
- 1500ml PO intake fluid restriction
UTI
- urine cx: gram negative bacilli
- bactrim
Alcohol use disorder
- thiamine, folic acid, lorazepam
- daily MSAS check
Ambulatory dysfunction
Weakness b/l LE
- PT/OT
- paresthesias
- likely secondary to chronic alcohol use
L proximal humerus fx
- immobilized
- pain control
- ortho consulted - pursue non-operative treatment
- plan to dc to [facility] on
HTN
- cont home amlodipine, carvedilol, losartan
Overweight due to excess calories
- likely affected by alcohol use disorder
Diet: regular
DVT prophylaxis: lovenox
Code status: FULL CODE
Anticipated Discharge: Today
Subjective/Interval History
-
Date of Service: January 28, 2024
Ms. Malena Rowan is a 69yo F h HTN and alcohol use disorder admitted for hyponatremia s/p mechanical fall. No overnight events. Pt had a cough yesterday, but improved with robitussin. No complaints of cough today.
Objective Data
-
Labs:
Laboratory Results
01/28/24
06:00
WBC Pending
Hgb Pending
Hct Pending
Plt Count Pending
Sodium Pending
Potassium Pending
Chloride Pending
Carbon Dioxide Pending
BUN Pending
Creatinine Pending
Glucose Pending
Calcium Pending
Total Bilirubin Pending
AST Pending
ALT Pending
Alkaline Phosphatase Pending
Vital Signs:
Vital Signs
Temp Pulse Resp BP Pulse Ox
98.1 F 80 18 149/79 95
01/27/24 15:43 01/27/24 20:37 01/27/24 15:43 01/27/24 20:37 01/27/24 15:43
I&O
01/27/24 01/28/24 01/29/24
06:59 06:59 06:59
Intake Total 2160 / 2160 1320 / 1320
Balance 2160 / 2160 1320 / 1320
Review of Systems
-
History Source: Patient
Constitutional: Reports No Symptoms
EENT: Reports No Symptoms Reported
Respiratory: Reports Cough; Denies Trouble Breathing or Wheezing
Cardiac: Reports No Symptoms
Abdomen/GI: Reports No Symptoms
Genitourinary: Reports Frequency and Incontinence
Musculoskeletal: Reports Muscle Pain
Skin: Reports No Symptoms
Neuro: Reports No Symptoms
Physical Exam
-
General: Well Developed, Well Nourished and No Apparent Distress
HEENT: Normocephalic, Atraumatic and Moist Mucous Membranes
Respiratory: Clear to Auscultation and Non Labored Respirations; Negative Wheezes, Rales or Rhonchi
Cardiac: Regular Rhythm and S1/S2; Negative Murmur, Rub or Gallop
GI: Soft, Nontender, Nondistended and Normal Bowel Sounds
Musculoskeletal: No Clubbing, No Cyanosis, No Edema and Other (b/l UE strength intact, b/l radial pulses 2+)
Skin: Warm and Dry
Neuro: AO x 3
Psych: Calm
[2024-01-28 08:28] LABS: Hematocrit 30.2 % (37.0-47.0); Hemoglobin 10.1 g/dL (12.0-16.0); Mean Corp Hgb Conc. 33.4 g/dL (33.0-37.0); Mean Corpuscular Hgb 32.2 pg (27.0-31.0); Mean Corpuscular Volume 96.2 fL (81.0-99.0); Platelet Count 243 10^3/uL (130-400); Red Blood Cell Count 3.14 10^6/uL (4.20-5.40); Red Cell Dist. Width 13.1 % (11.5-14.5); White Blood Cell Count 6.2 10^3/uL (4.8-10.8)
[2024-01-28] MEDS: BACTRIM DS 800 MG/160 MG 1 TABLET PO (08:33)
[2024-01-28] MEDS: COZAAR 100 MG PO (08:35)
[2024-01-28] MEDS: NORVASC 10 MG PO (08:35)
[2024-01-28] MEDS: VITAMIN B1 100 MG PO (08:35)
[2024-01-28] MEDS: COREG 25 MG PO (08:35)
[2024-01-28] MEDS: FOLVITE 1 MG PO (08:36)
[2024-01-28] MEDS: PEPCID 20 MG PO (08:36)
--- NOTE | 2024-01-28 08:45 | W.DCSUMMARY ---
Addendum entered and electronically signed by Christos Escalona MD 01/28/24 22:35:
Read, reviewed, and agree. See same day progress note for additional details. clarified with NM for bactrim x 5 days. Script given for tramadol x 3 days
Jone Escalona MD
Original Note:
Documented by User: Frances Short DO, Resident 01/28/24 14:59
Discharge Summary
Discharge Data
Date of Admission: 01/25/24
Date of Discharge: 01/28/24
-
Pending Results: No
Hospital Course
Discharging Physician : Dr. Frances Short, Dr. Jone Escalona
Disposition : SNF - [facility]
Primary care physician : Dr. Lei Cook
Principal Discharge diagnosis : Comminuted proximal Left humerus fracture, hyponatremia, UTI
Chronic Discharge diagnosis : HTN, alcohol use disorder
Hospital Course : Presented to the ED for evaluation of L shoulder pain and weakness after a fall the night before. She slipped and fell, landing on her L side. Her daughter sent a welfare check, pt refused to be helped up. Later called EMS to take
her to the hospital. L shoulder XR significant for a comminuted mildly displaced fracture of the proximal left humerus. Seen by orthopedics, recommend conservative management in lieu of surgery. Pt should remain non-weightbearing for 2-3 weeks and
follow-up with orthopedics. Pt being discharged to SNF for PT/OT. While in waiting room, pt became incontinent and sat in her feces. She later developed a UTI w urine culture positive for pansensitive E. coli. Started on a 7-day course of bactrim
BID.
Important imaging findings : L shoulder XR: There is a comminuted, mildly displaced fracture of the proximal left humerus extending into the greater tuberosity. There is a ossific fragment adjacent to the distal clavicle which appears chronic.
Procedure findings : n/a
Discharge Plan
-
Patient Disposition: [facility]
Discharge Diagnosis/Procedures: Alcohol dependence, Peripheral Neuropathy, UTI, Chronic hyponatremia, Ambulatory dysfunction, Comminuted fracture of proximal left humerus, HTN, depression
Condition: Fair
Diet: As tolerated
Activity: As tolerated
Driving Restrictions: Not until seen by your Dr
Bathing Restrictions: None
Instructions: Hypovolemia in adults, Shoulder or upper arm fracture, Peripheral neuropathy
Referrals:
Dann Daniels MD [Active] - in two to three weeks
Lei Cook MD [Family Provider] - in one week
Additional Discharge Medication Instructions: Remain non-weight bearing in the sling for 2-3 weeks, until the pain subsides. Please follow up with Dr. Daniels.
Take gabapentin 200mg capsule before bedtime.
Take sulfamethoxazole-trimethoprim 800-160 tablet twice a day for five more days.
Restrict fluids to 1500mL per day
Repeat BMP in 1 week.
Prescriptions:
New
gabapentin 100 mg Capsule
200 mg PO HS 30 Days Qty: 60 0RF
sulfamethoxazole-trimethoprim 800-160 mg tablet
1 tab PO BID 3 Days Qty: 10 0RF
Continued
losartan 100 mg Tablet
100 mg PO DAILY
carvedilol [Coreg] 25 mg Tablet
25 mg PO BID
loperamide 2 mg Tablet
2 mg PO QIDPRN PRN (Reason: diarrhea)
amlodipine 10 mg Tablet
10 mg PO DAILY
Discharge Orders:
Discharge Patient (As Directed); Ordered 01/28/24
Ordered By: Frances Short
Discharge Date and Time
Discharge Date/Time: 01/28/24 14:41
Print Language: ANGOLAN

Documented by User: Christos Escalona MD 01/28/24 22:30
Discharge Summary
Discharge Data
Date of Admission: 01/25/24
Date of Discharge: 01/28/24
Discharge Plan
-
Patient Disposition: [facility]
Discharge Diagnosis/Procedures: Alcohol dependence, Peripheral Neuropathy, UTI, Chronic hyponatremia, Ambulatory dysfunction, Comminuted fracture of proximal left humerus, HTN, depression
Condition: Fair
Diet: As tolerated
Activity: As tolerated
Driving Restrictions: Not until seen by your Dr
Bathing Restrictions: None
Instructions: Hypovolemia in adults, Shoulder or upper arm fracture, Peripheral neuropathy
Referrals:
Dann Daniels MD [Active] - in two to three weeks
Lei Cook MD [Family Provider] - in one week
Additional Discharge Medication Instructions: Remain non-weight bearing in the sling for 2-3 weeks, until the pain subsides. Please follow up with Dr. Daniels.
Take gabapentin 200mg capsule before bedtime.
Take sulfamethoxazole-trimethoprim 800-160 tablet twice a day for five more days.
Restrict fluids to 1500mL per day
Repeat BMP in 1 week.
Prescriptions:
New
gabapentin 100 mg Capsule
200 mg PO HS 30 Days Qty: 60 0RF
sulfamethoxazole-trimethoprim 800-160 mg tablet
1 tab PO BID 3 Days Qty: 10 0RF
Continued
losartan 100 mg Tablet
100 mg PO DAILY
carvedilol [Coreg] 25 mg Tablet
25 mg PO BID
loperamide 2 mg Tablet
2 mg PO QIDPRN PRN (Reason: diarrhea)
amlodipine 10 mg Tablet
10 mg PO DAILY
Discharge Orders:
Discharge Patient (As Directed); Ordered 01/28/24
Ordered By: Frances Short
Discharge Date and Time
Discharge Date/Time: 01/28/24 14:41
Print Language: ANGOLAN
[2024-01-28 09:32] LABS: ALT (SGPT) 17 U/L (0-35); AST (SGOT) 25 U/L (14-36); Albumin 3.8 g/dl (3.5-5.0); Alkaline Phosphatase 91 U/L (38-126); Blood Urea Nitrogen 9 mg/dl (7-17); Calcium 8.9 mg/dl (8.4-10.2); Carbon Dioxide 23 mmol/L (22-30); Chloride 96 mmol/L (98-107); Estimated Creatinine Clearance 74 ml/min; Glucose 102 mg/dl (70-99); Potassium 4.1 mmol/L (3.5-5.1); Sodium 128 mmol/L (135-145); Total Bilirubin 0.5 mg/dl (0.2-1.3); Total Protein 6.4 g/dl (6.3-8.2); eGFR > 60.00
--- NOTE | 2024-01-28 12:59 | CM ---
Patient to transfer to skilled placement at [facility] today.
[facility]
Report [phone]
--- NOTE | 2024-01-28 13:10 | PTCARENOTE ---
Patient refused flu shot- stated she has already received it .
[2024-01-28 14:07] VITALS: BP 126/81
== END 2024-01-28 14:41 | DRG 563 ==
LOC: 4 WEST ACU 12:03
PROVIDERS: Physician Assistant; Student in an Organized Health Care Education/Training Program; ADMITTING PHYSICIAN Internal Medicine; ATTENDING PHYSICIAN Family Medicine; CONSULT PHYSICIAN Student in an Organized Health Care Education/Training Program; EMERGENCY PHYSICIAN Emergency Medicine; FAMILY PHYSICIAN Family Medicine
DX: S42.202A Unspecified fracture of upper end of left humerus, initial encounter for closed fracture (principal); E87.1 Hypo-osmolality and hyponatremia; N39.0 Urinary tract infection, site not specified; F10.229 Alcohol dependence with intoxication, unspecified; I10 Essential (primary) hypertension; E66.09 Other obesity due to excess calories; Z68.29 Body mass index [BMI] 29.0-29.9, adult; W01.0XXA Fall on same level from slipping, tripping and stumbling without subsequent striking against object, initial encounter; F41.9 Anxiety disorder, unspecified; F32.A Depression, unspecified; G62.9 Polyneuropathy, unspecified; Z59.89 Other problems related to housing and economic circumstances
CPT/HCPCS: 73030; 80053; 80306; 80307; 81003; 81015; 82010; 82077; 82550; 82607; 82977; 83735; 83930; 83935; 84100; 84300; 84443; 85025; 85027; 85610; 85730; 87077; 87086; 87186; 96374; 97116; 97163; 97166; 97530; 97535; 99285

== ENCOUNTER → 2024-02-01 10:41 | Outpatient (REF) | payer OTHER, MEDICARE, BC, SELFPAY ==
[2024-02-01 11:10] LABS: Hematocrit 29.3 % (37.0-47.0); Hemoglobin 9.4 g/dL (12.0-16.0); Mean Corp Hgb Conc. 32.1 g/dL (33.0-37.0); Mean Corpuscular Hgb 31.8 pg (27.0-31.0); Mean Platelet Volume 8.9 fL (7.4-10.4); Platelet Count 278 10^3/uL (130-400); Red Blood Cell Count 2.96 10^6/uL (4.20-5.40); Red Cell Dist. Width 13.2 % (11.5-14.5); White Blood Cell Count 5.5 10^3/uL (4.8-10.8)
[2024-02-01 11:28] LABS: Blood Urea Nitrogen 14 mg/dl (7-17); Calcium 8.5 mg/dl (8.4-10.2); Carbon Dioxide 23 mmol/L (22-30); Chloride 97 mmol/L (98-107); Glucose 99 mg/dl (70-99); Potassium 4.7 mmol/L (3.5-5.1); Sodium 127 mmol/L (135-145)
== END ==
LOC: OLABP 10:41
PROVIDERS: ATTENDING PHYSICIAN Family Medicine
DX: R26.2 Difficulty in walking, not elsewhere classified (principal); N39.0 Urinary tract infection, site not specified; A41.50 Gram-negative sepsis, unspecified; F10.20 Alcohol dependence, uncomplicated; G62.9 Polyneuropathy, unspecified; E87.1 Hypo-osmolality and hyponatremia; I10 Essential (primary) hypertension; F32.9 Major depressive disorder, single episode, unspecified; F41.9 Anxiety disorder, unspecified; S42.202D Unspecified fracture of upper end of left humerus, subsequent encounter for fracture with routine healing; M79.602 Pain in left arm
CPT/HCPCS: 36415; 80048; 85027

== ENCOUNTER 2024-03-10 12:40 | Outpatient (RCR) | payer MEDICARE, BC, SELFPAY | END 2024-03-10 23:59 | disposition home or self-care (01) | LOC: RPT 12:40 | PROVIDERS: ATTENDING PHYSICIAN Student in an Organized Health Care Education/Training Program; FAMILY PHYSICIAN Family Medicine | DX: S42.295D Other nondisplaced fracture of upper end of left humerus, subsequent encounter for fracture with routine healing (principal) | CPT/HCPCS: 97010; 97110; 97162; 97535 ==

== ENCOUNTER 2024-04-07 12:48 | Outpatient (RCR) | payer MEDICARE, BC, SELFPAY | END 2024-04-07 23:59 | disposition home or self-care (01) | LOC: RPT 12:48 | PROVIDERS: ATTENDING PHYSICIAN Student in an Organized Health Care Education/Training Program; FAMILY PHYSICIAN Family Medicine | DX: S42.295D Other nondisplaced fracture of upper end of left humerus, subsequent encounter for fracture with routine healing (principal); S42.295A Other nondisplaced fracture of upper end of left humerus, initial encounter for closed fracture (principal); X58.XXXD Exposure to other specified factors, subsequent encounter | CPT/HCPCS: 97010; 97110 ==

== ENCOUNTER 2024-05-09 12:46 | Outpatient (RCR) | payer MEDICARE, BC, SELFPAY | END 2024-05-09 23:59 | disposition home or self-care (01) | LOC: RPT 12:46 | PROVIDERS: ATTENDING PHYSICIAN Student in an Organized Health Care Education/Training Program; FAMILY PHYSICIAN Family Medicine | DX: S42.295D Other nondisplaced fracture of upper end of left humerus, subsequent encounter for fracture with routine healing (principal); X58.XXXD Exposure to other specified factors, subsequent encounter; S42.295A Other nondisplaced fracture of upper end of left humerus, initial encounter for closed fracture | CPT/HCPCS: 97010; 97110 ==

== ENCOUNTER 2024-05-26 12:42 | Outpatient (RCR) | payer MEDICARE, BC, SELFPAY | END 2024-05-27 05:32 | disposition home or self-care (01) | LOC: RPT 12:42 | PROVIDERS: ATTENDING PHYSICIAN Student in an Organized Health Care Education/Training Program; FAMILY PHYSICIAN Family Medicine | DX: S42.295D Other nondisplaced fracture of upper end of left humerus, subsequent encounter for fracture with routine healing (principal); Z73.6 Limitation of activities due to disability; X58.XXXD Exposure to other specified factors, subsequent encounter; M62.81 Muscle weakness (generalized); S42.295A Other nondisplaced fracture of upper end of left humerus, initial encounter for closed fracture; R20.2 Paresthesia of skin; R20.0 Anesthesia of skin | CPT/HCPCS: 97110 ==